=== PATIENT | female | born 1965 | race Native Hawaiian/Other Pacific Islander ===

== ENCOUNTER 2020-07-11 15:34 | Outpatient (CLI) | payer BC ==
[~2020-07-11 15:34] MED LIST: ALLEGRA-D 1212 HOUR OR; ARMOUR THYROID30 MG PO; CIPRO500 MG PO; FLUT0.05 NAS; PROGESTERON VA; SCOP1.5D TD
== END 2020-07-11 23:30 | disposition home or self-care (01) ==
LOC: MRI 15:34
DX: M21.961 Unspecified acquired deformity of right lower leg (principal)